=== PATIENT | male | born 2000 | race American Indian/Alaskan Native ===

== ENCOUNTER 2019-07-06 23:23 | Emergency (ER) | payer BC ==
[2019-07-06] MEDS ORDERED: XYLOCAINE 1% 20 mL ONE (23:37)
[2019-07-07] MEDS ORDERED: IBUPROFEN PO ONE (00:12)
[2019-07-07] MEDS ORDERED: ULTRAM PO ONE (00:12)
--- NOTE | 2019-07-07 00:22 | Emergency Department Report ---
ED Trauma HPI - General Chief Complaint: Multiple Trauma Stated Complaint: TASER/ LACS TO HANDS Time Seen by Provider: 07/06/19 23:40 - History of Present Illness Initial Comments: 19 yo M brought in by EMS s/p taser by police. Pt has 2 taser barbs, one in the right forearm, one in the left mid back area. Pt also has abrasions and pain to the left shoulder and hand. Occurred: just prior to arrival Severity: moderate Pain Location: chest, back, upper extremity Method of Injury: fall, other (taser) Associated Symptoms (Fall): denies: abdominal pain, chest pain, headache Allergies/Adverse Reactions: Allergies No Known Allergies Allergy (Unverified 09/28/18 12:52) Home Medications: Ambulatory Orders Ibuprofen [Motrin] 600 mg PO Q8H PRN #20 tablet 09/28/18 Naproxen [Naprosyn] 500 mg PO BID #20 tablet 07/07/19 traMADol [Ultram] 50 mg PO Q6HR PRN #7 tablet 07/07/19 ED Review of Systems ROS: Stated complaint: TASER/ LACS TO HANDS Other details as noted in HPI Comment: All other systems reviewed and negative Respiratory: denies: shortness of breath Cardiovascular: denies: chest pain Musculoskeletal: back pain, other (reports left shoulder and hand pain) ED Past Medical Hx - Social History Smoking Status: Current Every Day Smoker Substance Use Type: Alcohol, Marijuana - Medications Home Medications: Home Medications Medication Instructions Recorded Confirmed Last Taken Type Ibuprofen [Motrin] 600 mg PO Q8H PRN #20 tablet 09/28/18 Unknown Rx Naproxen [Naprosyn] 500 mg PO BID #20 tablet 07/07/19 Unknown Rx traMADol [Ultram] 50 mg PO Q6HR PRN #7 tablet 07/07/19 Unknown Rx ED Physical Exam - General Limitations: No Limitations General appearance: alert, in no apparent distress, appears intoxicated - Head Head exam: Present: atraumatic, normocephalic - Eye Eye exam: Present: normal appearance, PERRL, EOMI - ENT ENT exam: Present: mucous membranes moist - Neck Neck exam: Present: normal inspection, full ROM. Absent: tenderness - Respiratory Respiratory exam: Present: normal lung sounds bilaterally. Absent: respiratory distress - Cardiovascular Cardiovascular Exam: Present: regular rate, normal rhythm - GI/Abdominal GI/Abdominal exam: Present: soft. Absent: distended, tenderness - Extremities Exam Extremities exam: Present: other (taser ben in right forearm; abrasions and tenderness to left shoulder; 4 cm laceration to dorsum of left hand, able to make a fist and open and close it) - Back Exam Back exam: Present: other (taser ben to left mid back, tenderness to left posterior chest wall) - Neurological Exam Neurological exam: Present: alert, oriented X3 - Psychiatric Psychiatric exam: Present: anxious - Skin Skin exam: Present: warm, dry, intact, normal color ED Course Vital Signs 07/07/19 07/07/19 07/07/19 00:20 00:37 01:00 Pulse Rate 77 71 Respiratory 17 14 17 Rate Blood Pressure 138/67 125/80 [Right] O2 Sat by Pulse 97 98 99 Oximetry - Laceration /Wound Repair Left Hand Wound Location: upper extremity Wound Length (cm): 4 Wound's Depth, Shape: superficial Wound Explored: no foreign body removed Irrigated w/ Saline (ccs): 500 Betadine Prep?: Yes Anesthesia: 1% Lidocaine Volume Anesthetic (ccs): 5 Wound Repaired With: sutures Suture Size/Type: 4:0, proline Number of Sutures: 4 Layer Closure?: No Sterile Dressing Applied?: Yes ED Medical Decision Making - Radiology Data Radiology results: report reviewed, image reviewed - Medical Decision Making - taser barbs removed - xrays normal, no fracture or dislocations - tetanus UTD - laceration on back of left hand repaired - advised suture removal in 1 week - advised OTC neosporin for abrasions - return precautions given, will d/c home at this time - Differential Diagnosis fracture, contusion, sprain Critical care attestation.: If time is entered above; I have spent that time in minutes in the direct care of this critically ill patient, excluding procedure time. ED Disposition Clinical Impression: Taser injury, Laceration of left hand, Contusion of left shoulder, Chest wall contusion, Multiple abrasions Disposition: -01 TO HOME OR SELFCARE Is pt being admited?: No Condition: Stable Instructions: Suture Care (ED), Laceration (ED), Contusion in Adults (ED), Abrasion (ED), Skin Adhesive Care (ED) Additional Instructions: Suture removal in 1 week. Prescriptions: Naproxen [Naprosyn] 500 mg PO BID #20 tablet traMADol [Ultram] 50 mg PO Q6HR PRN #7 tablet PRN Reason: Pain Referrals: PRIMARY CARE, [Primary Care Provider] - as needed [facility] [Provider Group] - 7-10 days Time of Disposition: 01:24
--- NOTE | 2019-07-07 00:30 | XRay Report ---
LEFT RIBS 3 VIEWS INDICATION / CLINICAL INFORMATION: injury COMPARISON: None available. FINDINGS: BONES / JOINT(S): No fracture is seen. No focal lytic or sclerotic lesions are seen in the ribs. SOFT TISSUES: No significant abnormality. ADDITIONAL FINDINGS: Lungs are clear. No pneumothorax is seen. The cardiomediastinal silhouette is un remarkable. Signer Name: Kane Garcia MD Signed: 07/07/2019 12:26 AM Workstation Name: [id number]
--- NOTE | 2019-07-07 00:37 | XRay Report ---
LEFT SHOULDER 3 VIEWS INDICATION / CLINICAL INFORMATION: injury COMPARISON: None available. FINDINGS: BONES / JOINT(S): No acute fracture or subluxation. No significant arthritis. SOFT TISSUES: No significant abnormality. ADDITIONAL FINDINGS: None. Signer Name: Kane Garcia MD Signed: 07/07/2019 12:33 AM Workstation Name: [id number]
--- NOTE | 2019-07-07 00:41 | XRay Report ---
LEFT HAND 3 VIEWS INDICATION / CLINICAL INFORMATION: injury COMPARISON: None available. FINDINGS: BONES / JOINT(S): No acute fracture or subluxation. No significant arthritis. SOFT TISSUES: There are small radiopaque foreign bodies along the fingers which appear to be predomin antly on the skin surface possibly representing gravel There is a small radiopacity posterior to the distal fourth metacarpal which may represent laceration . This may represent a foreign body within the soft tissue. ADDITIONAL FINDINGS: None. Signer Name: Kane Garcia MD Signed: 07/07/2019 12:36 AM Workstation Name: [id number]
[2019-07-07] MEDS ORDERED: NACL 0.9% 500 ML IR ONE (01:03)
[2019-07-07 01:35] VITALS: BP 125/80
[2019-07-07] MEDS ORDERED: NACL 0.9% IR ONE (01:48)
[2019-07-07] MEDS ORDERED: XYLOCAINE 1% 20 mL INFILTRATI ONE (01:53)
== END 2019-07-07 02:02 | disposition home or self-care (01) ==
LOC: ED 23:23
DX: S61.412A Laceration without foreign body of left hand, initial encounter (principal); S40.012A Contusion of left shoulder, initial encounter; S20.219A Contusion of unspecified front wall of thorax, initial encounter; W19.XXXA Unspecified fall, initial encounter; Y93.89 Activity, other specified; Y92.89 Other specified places as the place of occurrence of the external cause; Y99.8 Other external cause status; F17.200 Nicotine dependence, unspecified, uncomplicated; F12.10 Cannabis abuse, uncomplicated